=== PATIENT | male | born 1935 | race Caucasian/White ===

== ENCOUNTER 2017-01-23 10:38 | Outpatient (RCR) | payer MEDICARE, BC ==
[~2017-01-23] VITALS: Ht 152.4 cm; Wt 55.3 kg
[2017-01-25] MEDS ORDERED: Lidocaine 1% MPF 10mg/ml 5ml INJ ONE (16:00)
[2017-01-25] MEDS ORDERED: Lidocaine HCl 2% Jelly 5ml Tube TOPIC ONE (16:00)
== END 2017-02-10 | disposition home or self-care (01) ==
LOC: WCC 10:38
DX: L97.822 Non-pressure chronic ulcer of other part of left lower leg with fat layer exposed (principal); L59.9 Disorder of the skin and subcutaneous tissue related to radiation, unspecified; C44.729 Squamous cell carcinoma of skin of left lower limb, including hip; I87.2 Venous insufficiency (chronic) (peripheral)
CPT/HCPCS: 11042; 11100; G0277

== ENCOUNTER 2017-01-30 12:06 | Outpatient (CLI) | payer MEDICARE, BC ==
--- NOTE | 2017-01-30 15:07 | Diagnostic Imaging Report ---
Indications: COUGH Technique: AP and lateral chest Findings: Comparison: 01/20/2014 Linear density has developed in the left lung base. Right lung remains clear. Heart size, pulmonary vasculature remain within normal limits. No pleural abnormality demonstrated. Diffuse osteopenia, bilateral humeral head chronic deformities (progressive on left), cervicothoracic fusion hardware, scoliosis, aortic arch calcification, hiatal hernia, IVC filter, abdominal right upper quadrant surgical clips are again noted. IMPRESSION: Development of subsegmental atelectasis versus scarring Otherwise no evidence of acute cardiopulmonary disease, unchanged Progression of chronic erosive/destructive deformity left humeral head-favor chronic inflammatory/neuropathic arthropathy Other stable chronic changes as described
== END 2017-01-30 14:06 | disposition home or self-care (01) ==
LOC: RAD 12:06
DX: R05 Cough (principal); G62.9 Polyneuropathy, unspecified
CPT/HCPCS: 71020

== ENCOUNTER 2017-02-11 17:10 | Outpatient (RCR) | payer MEDICARE, BC ==
[~2017-02-11] VITALS: Ht 152.4 cm; Wt 55.3 kg
[2017-02-22] MEDS ORDERED: Lidocaine HCl 2% Jelly 5ml Tube TOPIC ONE (11:00)
== END 2017-03-13 | disposition home or self-care (01) ==
LOC: WCC 17:10
DX: L97.822 Non-pressure chronic ulcer of other part of left lower leg with fat layer exposed (principal); L59.9 Disorder of the skin and subcutaneous tissue related to radiation, unspecified; C44.729 Squamous cell carcinoma of skin of left lower limb, including hip; I87.2 Venous insufficiency (chronic) (peripheral); M19.90 Unspecified osteoarthritis, unspecified site
CPT/HCPCS: 11042; 15271; 29580; G0277; G0463; Q4133

== ENCOUNTER 2017-03-14 08:00 | Outpatient (RCR) | payer MEDICARE, BC | END 2017-04-13 | disposition home or self-care (01) | LOC: WCC 08:00 | DX: L97.822 Non-pressure chronic ulcer of other part of left lower leg with fat layer exposed (principal); C44.729 Squamous cell carcinoma of skin of left lower limb, including hip; L59.9 Disorder of the skin and subcutaneous tissue related to radiation, unspecified; M19.90 Unspecified osteoarthritis, unspecified site | CPT/HCPCS: 11042; 15271; 29580; G0277; Q4133 ==

== ENCOUNTER 2017-04-14 08:30 | Outpatient (RCR) | payer MEDICARE, BC ==
[2017-05-12] MEDS ORDERED: ATORVASTATIN CA40 MG ORAL (13:48)
[2017-05-12] MEDS ORDERED: VITAMIN B122500 MCG PO (13:48)
[2017-05-12] MEDS ORDERED: POTASSIUM CHLO20 ME3 PO (13:48)
[2017-05-12] MEDS ORDERED: PRAMIPEXOLE D0.25 MG ORAL (13:48)
[2017-05-12] MEDS ORDERED: FUROSEMIDE40 MG ORAL (13:48)
[2017-05-12] MEDS ORDERED: GABAPENTIN300 MG ORAL (13:48)
[2017-05-12] MEDS ORDERED: METHADONE HCL5 MG PO (13:48)
== END 2017-05-13 | disposition home or self-care (01) ==
LOC: WCC 08:30
DX: L97.822 Non-pressure chronic ulcer of other part of left lower leg with fat layer exposed (principal); C44.729 Squamous cell carcinoma of skin of left lower limb, including hip; L97.811 Non-pressure chronic ulcer of other part of right lower leg limited to breakdown of skin; L97.512 Non-pressure chronic ulcer of other part of right foot with fat layer exposed; C44.712 Basal cell carcinoma of skin of right lower limb, including hip; M19.90 Unspecified osteoarthritis, unspecified site; L59.8 Other specified disorders of the skin and subcutaneous tissue related to radiation
CPT/HCPCS: 11100; 15271; 29580; 82962; G0277; Q4133

== ENCOUNTER 2017-05-15 10:55 | Day surgery (SDC) | payer MEDICARE, BC ==
[2017-05-08 10:58] LABS: BASOPHILS % (AUTO) 0.4 % (0.0-2.0); MEAN CORPUSCULAR HEMOGLOBIN 30.1 PG (27.0-31.0); MEAN CORPUSCULAR VOLUME 94 FL (80-99); MEAN PLATELET VOLUME 5.8 FL (6.5-10.1); MONOCYTES % (AUTO) 6.6 % (1.0-10.0); NEUTROPHILS % (AUTO) 69.1 % (45.0-75.0); PLATELET COUNT 219 K/UL (150-450); RED BLOOD COUNT 4.16 M/UL (4.70-6.10); RED CELL DISTRIBUTION WIDTH 12.6 % (11.6-14.8); WHITE BLOOD COUNT 8.1 K/UL (4.8-10.8)
[2017-05-08 11:12] LABS: INR 1.1 (0.9-1.1); PROTHROMBIN TIME 11.3 SEC (9.30-11.50)
[2017-05-08 11:14] LABS: ANION GAP 10 (5-15); CALCIUM 8.7 mg/dL (8.6-10.2); CARBON DIOXIDE 32 mEQ/L (20-30); CHLORIDE 94 mEQ/L (98-107); HEMOLYSIS 1; POTASSIUM 3.9 mEQ/L (3.4-4.9); SODIUM 136 mEQ/L (135-145)
[2017-05-15] VITALS (8 sets, daily range): BP systolic 96–141; BP diastolic 49–75
[~2017-05-15] VITALS: Ht 152.4 cm; Wt 53.1 kg
[~2017-05-15 10:55] MED LIST: ATORVASTATIN CA40 MG ORAL; FUROSEMIDE40 MG ORAL; GABAPENTIN300 MG ORAL; METHADONE HCL5 MG PO; POTASSIUM CHLO20 ME3 PO; PRAMIPEXOLE D0.25 MG ORAL; VITAMIN B122500 MCG PO
--- NOTE | 2017-05-15 12:14 | Pre-Procedure Note/Attestation ---
Pre-Procedure Note/Attestation Complete Prior to Procedure Planned Procedure: bilateral Procedure Narrative: resection right foot basal cell cancer, possible skin graft. Debridement of left lower leg ulcer. Indications for Procedure Pre-Operative Diagnosis: Basal cell cancer right foot. 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 Attestation I attest that I discussed the nature of the procedure; its benefits; risks and complications; and alternatives (and the risks and benefits of such alternatives ), prior to the procedure, with the patient (or the patient's legal airport representative). I attest that, if there was a reasonable possibility of needing a blood transfusion, the patient (or the patient's legal airport representative) was given the [facility] standardized written summary, pursuant to the Kyle Keena Blood Safety Act ([place] Health and Safety Code # 1645, as amended). I attest that I re-evaluated the patient just prior to the surgery and that there has been no change in the patient's H&P, except as documented below: WINSTON CHOW May 15, 2017 12:14
[2017-05-15] MEDS ORDERED: ceFAZolin 2gm/50ml Premix 50 ML IVPB ONE (12:15)
[2017-05-15] MEDS ORDERED: fentaNYL 100 mcg/2 mL IV ONE (14:00)
[2017-05-15] MEDS ORDERED: Propofol 1,000mg/ 100ml btl IV ONE (14:00)
[2017-05-15] MEDS ORDERED: Midazolam 2mg/2ml Inj ONE (14:00)
[2017-05-15] MEDS ORDERED: NS Irrig 1000ml IRRIG ONE (14:00)
[2017-05-15] MEDS ORDERED: NS Irrig 1000ml ONE (14:00)
[2017-05-15] MEDS ORDERED: Sterile Water Irrig 1000ml IRRIG ONE (14:00)
[2017-05-15] MEDS ORDERED: Atropine Sulfate 0.4mg/ml inj ONE (14:00)
[2017-05-15] MEDS ORDERED: Lidocaine 1% 10mg/ml/Epi 0.005mg/ml 30ml vial INJ ONE (14:00)
[2017-05-15] MEDS ORDERED: LR 1000ml ONE (14:00)
[2017-05-15] MEDS ORDERED: ePHEDrine 50mg/ml Inj ONE (14:00)
[2017-05-15] MEDS ORDERED: Neosporin Oint Ud Pkt TOPIC ONE (14:57)
[2017-05-15] MEDS ORDERED: Meperidine 25mg/0.5ml Inj (FOR RIGORS ONLY) ONE (15:48)
--- NOTE | 2017-05-15 15:51 | Brief Operative Note ---
Immediate Post Operative Note Operative Note Pre-op Diagnosis: Basal cell cancer right foot. 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 Procedure: Excisional debridement of left lower leg ulcer to subcutaneous tissue. Resection of right foot basal cell cancer with frozen section x 2. Post-op Diagnosis: same as pre-op Findings: other - Margins clear on frozen sections Surgeon: Rayo Anesthesiologist: Purvi Anesthesia: local, MAC Specimen: yes Complications: none Condition: stable Fluids: IVF Estimated Blood Loss: none Drains: none Implant(s) used?: No WINSTON CHOW May 15, 2017 15:51
[2017-05-15] MEDS ORDERED: Meperidine 25mg/0.5ml Inj (FOR RIGORS ONLY) IV PRN (16:00)
--- NOTE | 2017-05-15 19:18 | Cardiology Report ---
APPROVED REPORT EKG Measurement Heart [id number] Sinus bradycardia with premature atrial complexes with aberrant conduction Voltage criteria for left ventricular hypertrophy Possible Lateral infarct, age undetermined Abnormal ECG
--- NOTE | 2017-05-15 23:00 | Operative Note - Dictated ---
DATE OF OPERATION: 05/15/2017 SURGEON: Lawrence Cade M.D. ANESTHESIOLOGIST: Kyle Heredia M.D. PREOPERATIVE DIAGNOSES: 1. Right foot basal cell carcinoma. 2. Left lower extremity chronic nonhealing wound. POSTOPERATIVE DIAGNOSES: 1. Right foot basal cell carcinoma. 2. Left lower extremity chronic nonhealing wound. OPERATION: 1. Excisional debridement down to subcutaneous tissue of the left lower extremity nonhealing wound. 2. Resection of right foot basal cell carcinoma, frozen section x2. Anesthesia: General anesthesia with 30 mL of 1% lidocaine with 1:100,000 epinephrine local anesthetic. Operative Indications: This is an 81-year-old male who had a lesion on his right foot as well as a chronic nonhealing wound on his left lower extremity. He had an incisional biopsy of the right foot lesion several weeks ago, which was positive for basal cell carcinoma. Decision was made to take him to the operating room for resection of this lesion as well as debridement of his left lower extremity wound. Once, he was medically cleared, he was scheduled for the surgery. Operative Procedure: The patient was seen in the preoperative area. The operative plan was again discussed and agreed upon. An IV was placed and informed consent was signed. He was then taken back to the operating room. The patient was placed on the operating table in the supine position and once the anesthesia was induced, his right lower extremity and left lower extremity were prepped and draped in the usual sterile fashion. A time-out was then performed and then began on the left side, a #15 blade was used to perform excisional debridement down to subcutaneous tissue. Hemostasis was obtained with pressure and then a dressing was applied, which consisted of Adaptic gauze and a Kerlix. The right foot lesion was injected with 20 mL of 1% lidocaine with 1:100,000 epinephrine. Then, after waiting for appropriate amount of time, an incision was made around the lesion taking a several millimeter margin. This was taken down to the level of the subcutaneous tissue in some areas and down to tendon and other areas. The specimen was taken off the field after being labeled at 12 o'clock position with a nylon suture. This will be sent for permanent section. At this point, an elliptical rim of skin was taken for frozen section as well as a layer of deep tissue for deep margins. This was sent to pathology for frozen section and after being analyzed, this came back negative for any residual carcinoma. At this point, hemostasis was carefully obtained and the wound, which measured 3.6 x 3.4 x 0.5 cm was dressed with ointment followed by Adaptic gauze and a Kerlix and an Juno wrap. The patient was then awoken and taken to the recovery room in stable condition. No complications. EBL was minimal. The patient tolerated the procedure well. Lawrence Cade M.D. DR: CHLOE JOB#: [id number] CC:
== END 2017-05-15 17:00 | disposition home or self-care (01) ==
LOC: SUR 10:55
DX: C44.712 Basal cell carcinoma of skin of right lower limb, including hip (principal); L97.929 Non-pressure chronic ulcer of unspecified part of left lower leg with unspecified severity; I51.7 Cardiomegaly; R01.1 Cardiac murmur, unspecified; M06.9 Rheumatoid arthritis, unspecified; G62.9 Polyneuropathy, unspecified; K21.9 Gastro-esophageal reflux disease without esophagitis; M41.9 Scoliosis, unspecified; Z90.49 Acquired absence of other specified parts of digestive tract; Z96.651 Presence of right artificial knee joint; Z87.891 Personal history of nicotine dependence; Z80.8 Family history of malignant neoplasm of other organs or systems; Z81.8 Family history of other mental and behavioral disorders; Z79.82 Long term (current) use of aspirin; L85.9 Epidermal thickening, unspecified
CPT/HCPCS: 11042; 11624; 36415; 80048; 85025; 85610; 85730; 93005; J0461; J2250; J2704; J3010; J7120; 94003; 94150; J2180

== ENCOUNTER 2017-05-22 08:45 | Outpatient (RCR) | payer MEDICARE, BC ==
--- NOTE | 2017-05-15 14:40 | Anethesia Preoperative Eval ---
Anesthesia Pre-op PMH/ROS General Date of Evaluation: May 15, 2017 Time of Evaluation: 13:45 Anesthesiologist: Giovanna ASA Score: ASA 3 Mallampati Score Class I : Soft palate, uvula, fauces, pillars visible Class II: Soft palate, uvula, fauces visible Class III: Soft palate, base of uvula visible Class IV: Only hard plate visible Mallampati Classification: Class II Surgeon: Rayo Diagnosis: Basal Cell CA right foot Surgical Procedure: Excision of basal cell CA Family History: no anesthesia problems Allergies: Coded Allergies: NO KNOWN DRUG ALLERGIES (Verified Allergy, Unknown, 01/25/17) Medications: see eMAR Past Medical History Cardiovascular: Denies: HTN, CAD, TN, valve dz, arrhythmia, other Pulmonary: Denies: asthma, COPD, [place], other Gastrointestinal/Genitourinary: Reports: GERD, Denies: CRI, ESRD, other Endocrine: Denies: DM, hypothyroidism, steroids, other HEENT: Denies: cataract (L), cataract (R), glaucoma, [place] (L), [place] (R), other Hematology/Immune: Denies: anemia, DVT, bleeding disorder, other Musculoskeletal/Integumentary: Reports: RA, DJD PMH Narrative: RA, GERD, DJD, chronic pain, restless leg PSxH Narrative: Lumbar fusion, cholecystectomy, TKR Anesthesia Pre-op Phys. Exam Physician Exam Constitutional: NAD Neurologic: CN 2-12 intact Cardiovascular: RRR, no M/R/G Respiratory: CTA Gastrointestinal: S/NT/ND Airway Exam Mallampati Score: Class II MO: full ROM: full Teeth: missing Anesthesia Pre-op A/P Studies Pre-op Studies: EKG - SR, possible lateral TN via poor R wave progression Risk Assessment & Plan Assessment: Excision of basal cell in this RA patient Plan: MAC, TIVA Status Change Before Surgery: No Pre-Antibiotics Drug: Ancef Given Within 1 Hr of Incision: Yes Time Given: 14:10 CARLA MONTES M.D. May 15, 2017 14:40
--- NOTE | 2017-05-15 14:42 | Immediate Post-Op Evaluation ---
Immediate Post-Op Evalulation Immediate Post-Op Evalulation Procedure: Excision of basal cell CA right foot Date of Evaluation: May 15, 2017 Time of Evaluation: 15:45 IV Fluids: 1050 Blood Pressure Systolic: 94 Blood Pressure Diastolic: 50 Pulse Rate: 60 Respiratory Rate: 10 O2 Sat by Pulse Oximetry: 100 Temperature (Fahrenheit): 98.0 Pain Score (1-10): 0 Nausea: No Vomiting: No Complications No complication Patient Status: awake, patent, none Hydration Status: adequate Drug: Ancef Given Within 1 Hr of Incision: Yes Time Given: 14:10 CARLA MONTES M.D. May 15, 2017 14:42
[2017-05-15 15:39] VITALS: BP 100/55
--- NOTE | 2017-05-15 15:39 | 48 Hour Post Anesthesia Eval ---
Post Anesthesia Evaluation Procedure: Excision of basal cell CA right foot Date of Evaluation: May 15, 2017 Time of Evaluation: 16:00 Blood Pressure Systolic: 100 0: 55 Pulse Rate: 56 Respiratory Rate: 12 O2 Sat by Pulse Oximetry: 100 Airway: patent Nausea: No Vomiting: No Pain Intensity: 0 Hydration Status: adequate Cardiopulmonary Status: Stable Mental Status/LOC: patient returned to baseline Follow-up Care/Observations: As per surgery Post-Anesthesia Complications: No anesthetic complication Follow-up care needed: N/A CARLA MONTES M.D. May 15, 2017 15:39
[~2017-05-22] VITALS: Ht 30.5 cm; Wt 0.5 kg
[~2017-05-22 08:45] MED LIST changes: +Bacitracin 50000 Units Vial ONE; +DiphenhydrAMINE 50mg/ml Inj IVP PRN; +Hydromorphone 0.5mg/0.5ml inj IVP PRN; +LR 1000ml 1,000 ML IV SCH; +LR 1000ml 1,000 ML IVLG SCH; +Lidocaine 1% 10mg/ml/Epi 0.005mg/ml 30ml vial INJ ONE; +Meperidine 25mg/0.5ml Inj (FOR RIGORS ONLY) IV PRN; +Muri-Lube ONE
== END 2017-06-13 | disposition home or self-care (01) ==
LOC: WCC 08:45
DX: L59.8 Other specified disorders of the skin and subcutaneous tissue related to radiation (principal); L97.822 Non-pressure chronic ulcer of other part of left lower leg with fat layer exposed; C44.729 Squamous cell carcinoma of skin of left lower limb, including hip; L97.811 Non-pressure chronic ulcer of other part of right lower leg limited to breakdown of skin; L97.512 Non-pressure chronic ulcer of other part of right foot with fat layer exposed; M19.90 Unspecified osteoarthritis, unspecified site
CPT/HCPCS: 11042; 11043; 15271; 15275; 29580; 97605; Q4133

== ENCOUNTER 2017-05-26 01:53 | Emergency (ER) | payer MEDICARE, BC ==
[~2017-05-26] VITALS: Ht 162.6 cm; Wt 53.1 kg
[~2017-05-26 01:53] MED LIST changes: -Bacitracin 50000 Units Vial ONE; -DiphenhydrAMINE 50mg/ml Inj IVP PRN; -Hydromorphone 0.5mg/0.5ml inj IVP PRN; -LR 1000ml 1,000 ML IV SCH; -LR 1000ml 1,000 ML IVLG SCH; -Lidocaine 1% 10mg/ml/Epi 0.005mg/ml 30ml vial INJ ONE; -Meperidine 25mg/0.5ml Inj (FOR RIGORS ONLY) IV PRN; -Muri-Lube ONE
[2017-05-26 02:00] VITALS: BP 148/82
[2017-05-26 03:29] VITALS: BP 111/52
[2017-05-26 03:45] VITALS: BP 111/52
--- NOTE | 2017-05-28 07:22 | Emergency Room Report ---
History of Present Illness General Chief Complaint: General Complaint Source: Patient Present Illness HPI Patient presents with complaints of his wound vacuum is not functioning appropriately He noticed this for the past 2 hours He had called the company And they told him to present to the ER Denies any headache or visual changes denies any fevers or chills Patient is on therapy outpatient for chronic open wounds of the lower leg Denies any change in medications Allergies: Coded Allergies: NO KNOWN DRUG ALLERGIES (Verified Allergy, Unknown, 01/25/17) Patient History Past Medical History: see triage record Pertinent Family History: none Reviewed Nursing Documentation: PMH: Agreed, PSxH: Agreed Nursing Documentation-PMH Hx Cardiac Problems: No Hx Cancer: Yes - RIGHT FOOT,LEFT LEG Hx Gastrointestinal Problems: Yes Hx Neurological Problems: No Hx Neurologic Surgery: Yes - CERVICAL FUSION-2001, LUMBAR SURGERY-2001 Review of Systems All Other Systems: negative except mentioned in HPI Physical Exam Vital Signs Date Time Temp Pulse Resp B/P (MAP) Pulse Ox O2 Delivery O2 Flow Rate FiO2 05/26/17 01:58 97.9 70 18 148/82 98 Room Air Sp02 EP Interpretation: reviewed, normal General Appearance: well appearing, no apparent distress Head: normocephalic, atraumatic Eyes: bilateral eye PERRL, bilateral eye EOMI ENT: normal pharynx Neck: full range of motion, supple Respiratory: lungs clear Cardiovascular #1: regular rate, rhythm Gastrointestinal: non tender, soft Musculoskeletal: other - no focal deficit Neurologic: alert, oriented x3 Skin: other - Patient has dressing on the right lower extremity, wound packing is in place and this was no further removed for interrogation Lymphatic: no adenopathy Medical Decision Making Diagnostic Impression: Primary Impression: wound vacuum malfunction ER Course The patient's machine is making a sound, which reveals likely leak from some aspect of the apparatus After applying pressure to be 2 size of the machine were able to make a better seal, patient reports that there might have been some trauma to that apparatus in that area With pressure and applying a dressing around the machine we are able to fix the machine and have appropriate suctioning Patient also feels that suctioning working At this time stable for outpatient followup Last Vital Signs Date Time Temp Pulse Resp B/P (MAP) Pulse Ox O2 Delivery O2 Flow Rate FiO2 05/26/17 03:45 97.9 56 14 111/52 99 Room Air Status: improved Disposition: HOME, SELF-CARE Condition: Improved Referrals: NON PHYSICIAN (PCP) Patient Instructions: Vacuum-Assisted Closure Therapy Home Guide Additional Instructions: Patient is provided with the discharge instructions notified to follow up with primary doctor in the next 2-3 days otherwise return to the er with any worsening symptoms. Please note that this report is being documented using DRAGON technology. This can lead to erroneous entry secondary to incorrect interpretation by the dictating instrument. TALHA VILLARREAL D.O. May 28, 2017 07:22
== END 2017-05-26 03:54 | disposition home or self-care (01) ==
LOC: EMR 02:29
DX: T85.698A Other mechanical complication of other specified internal prosthetic devices, implants and grafts, initial encounter (principal); Y83.8 Other surgical procedures as the cause of abnormal reaction of the patient, or of later complication, without mention of misadventure at the time of the procedure; Y92.89 Other specified places as the place of occurrence of the external cause; Z85.89 Personal history of malignant neoplasm of other organs and systems; Z98.1 Arthrodesis status
CPT/HCPCS: 99282

== ENCOUNTER 2017-05-28 00:44 | Emergency (ER) | payer MEDICARE, BC ==
[~2017-05-28] VITALS: Ht 152.4 cm; Wt 51.7 kg
[2017-05-28 01:00] VITALS: BP 132/85
--- NOTE | 2017-05-28 01:22 | Emergency Room Report ---
History of Present Illness General Chief Complaint: General Complaint Source: Patient Present Illness HPI Is a pleasant 81-year-old male with a history of cancer. He has a wound VAC to his right leg. It was not working so he came here. He was afraid that the infection and drainage to go back into his foot. Denies any trauma. No fever or chills. Allergies: Coded Allergies: NO KNOWN DRUG ALLERGIES (Verified Allergy, Unknown, 01/25/17) Patient History Past Medical History: see triage record, old chart reviewed Past Surgical History: other Pertinent Family History: none Social History: Denies: smoking Immunizations: other Reviewed Nursing Documentation: PMH: Agreed, PSxH: Agreed Nursing Documentation-PMH Hx Cardiac Problems: No Hx Cancer: Yes - RIGHT FOOT,LEFT LEG Hx Gastrointestinal Problems: Yes Hx Neurological Problems: No Hx Neurologic Surgery: Yes - CERVICAL FUSION-2001, LUMBAR SURGERY-2001 Review of Systems Eye: Denies: eye pain, blurred vision ENT: Denies: ear pain, nose congestion, throat swelling Respiratory: Denies: cough, shortness of breath Cardiovascular: Denies: chest pain, palpitations Gastrointestinal: Denies: abdominal pain, diarrhea, nausea, vomiting Musculoskeletal: Denies: back pain, joint pain Skin: Denies: rash Neurological: Denies: headache, numbness Endocrine: Denies: increased thirst, increased urine Hematologic/Lymphatic: Denies: easy bruising All Other Systems: negative except mentioned in HPI Physical Exam Vital Signs Date Time Temp Pulse Resp B/P (MAP) Pulse Ox O2 Delivery O2 Flow Rate FiO2 05/28/17 00:50 98.1 60 18 137/87 98 Room Air vitals normal Sp02 EP Interpretation: reviewed, normal General Appearance: well appearing, no apparent distress, alert Head: normocephalic, atraumatic Eyes: bilateral eye PERRL, bilateral eye EOMI ENT: hearing grossly normal, normal pharynx Neck: full range of motion, supple, no meningismus Respiratory: chest non-tender, lungs clear, normal breath sounds Cardiovascular #1: regular rate, rhythm, no murmur Gastrointestinal: normal bowel sounds, non tender, no mass, no organomegaly, no bruit, non-distended Musculoskeletal: back normal, normal range of motion, other - Bilateral lymphedema. Wound VAC to the right lower leg. Psychiatric: mood/affect normal Skin: warm/dry Medical Decision Making Diagnostic Impression: Primary Impression: Encounter for management of vacuum-assisted closure (VAC) of wound ER Course Patient with malfunction of his wound VAC. I disconnected everything reconnected it. Is working now. We'll discharge him. Last Vital Signs Date Time Temp Pulse Resp B/P (MAP) Pulse Ox O2 Delivery O2 Flow Rate FiO2 05/28/17 00:50 98.1 60 18 137/87 98 Room Air Status: improved Disposition: HOME, SELF-CARE Condition: Stable Referrals: NOT CHOSEN IPA/,REFERRING (PCP) Additional Instructions: Followup your doctor on Monday and or as needed. Return if worse. JAMES FOSTER M.D. May 28, 2017 01:22
[2017-05-28 01:27] VITALS: BP 132/85
== END 2017-05-28 01:25 | disposition home or self-care (01) ==
LOC: EMR 00:58
DX: Z48.01 Encounter for change or removal of surgical wound dressing (principal); I89.0 Lymphedema, not elsewhere classified; Z98.1 Arthrodesis status; Z85.89 Personal history of malignant neoplasm of other organs and systems
CPT/HCPCS: 99282

== ENCOUNTER 2017-06-19 08:45 | Outpatient (RCR) | payer MEDICARE, BC ==
[2017-05-15 15:39] VITALS: BP 100/55
== END 2017-07-13 | disposition home or self-care (01) ==
LOC: WCC 08:45
DX: L97.822 Non-pressure chronic ulcer of other part of left lower leg with fat layer exposed (principal); L59.8 Other specified disorders of the skin and subcutaneous tissue related to radiation; C44.729 Squamous cell carcinoma of skin of left lower limb, including hip; L97.811 Non-pressure chronic ulcer of other part of right lower leg limited to breakdown of skin; L97.512 Non-pressure chronic ulcer of other part of right foot with fat layer exposed; Z85.828 Personal history of other malignant neoplasm of skin; M19.90 Unspecified osteoarthritis, unspecified site
CPT/HCPCS: 15004; 15275; 29580; Q4133

== ENCOUNTER 2017-07-17 08:45 | Outpatient (RCR) | payer MEDICARE, BC ==
[2017-05-15 15:39] VITALS: BP 100/55
== END 2017-08-13 | disposition home or self-care (01) ==
LOC: WCC 08:45
DX: L97.822 Non-pressure chronic ulcer of other part of left lower leg with fat layer exposed (principal); C44.729 Squamous cell carcinoma of skin of left lower limb, including hip; L59.8 Other specified disorders of the skin and subcutaneous tissue related to radiation; L97.811 Non-pressure chronic ulcer of other part of right lower leg limited to breakdown of skin; L97.512 Non-pressure chronic ulcer of other part of right foot with fat layer exposed
CPT/HCPCS: 11042; 15271; 15275; 29580; Q4133

== ENCOUNTER 2017-08-21 09:02 | Outpatient (RCR) | payer MEDICARE, BC ==
[2017-05-15 15:39] VITALS: BP 100/55
[~2017-08-21] VITALS: Ht 152.4 cm; Wt 55.3 kg
== END 2017-09-13 | disposition home or self-care (01) ==
LOC: WCC 09:02
DX: L97.822 Non-pressure chronic ulcer of other part of left lower leg with fat layer exposed (principal); L59.8 Other specified disorders of the skin and subcutaneous tissue related to radiation; C44.729 Squamous cell carcinoma of skin of left lower limb, including hip; L97.811 Non-pressure chronic ulcer of other part of right lower leg limited to breakdown of skin; L97.512 Non-pressure chronic ulcer of other part of right foot with fat layer exposed; Z85.828 Personal history of other malignant neoplasm of skin; M19.90 Unspecified osteoarthritis, unspecified site
CPT/HCPCS: 15271; 29580; Q4133

== ENCOUNTER 2017-09-18 08:42 | Outpatient (RCR) | payer MEDICARE, BC ==
[2017-05-15 15:39] VITALS: BP 100/55
== END 2017-10-11 | disposition home or self-care (01) ==
LOC: WCC 08:42
DX: L59.8 Other specified disorders of the skin and subcutaneous tissue related to radiation (principal); L97.822 Non-pressure chronic ulcer of other part of left lower leg with fat layer exposed; C44.729 Squamous cell carcinoma of skin of left lower limb, including hip; L97.811 Non-pressure chronic ulcer of other part of right lower leg limited to breakdown of skin; L97.512 Non-pressure chronic ulcer of other part of right foot with fat layer exposed; M19.90 Unspecified osteoarthritis, unspecified site
CPT/HCPCS: 15271; 29580; Q4131; Q4133

== ENCOUNTER 2017-10-16 08:52 | Outpatient (RCR) | payer MEDICARE, BC ==
[2017-05-15 15:39] VITALS: BP 100/55
[~2017-10-16] VITALS: Ht 152.4 cm; Wt 55.3 kg
== END 2017-11-11 | disposition home or self-care (01) ==
LOC: WCC 08:52
DX: L97.822 Non-pressure chronic ulcer of other part of left lower leg with fat layer exposed (principal); L59.8 Other specified disorders of the skin and subcutaneous tissue related to radiation; C44.729 Squamous cell carcinoma of skin of left lower limb, including hip; L97.811 Non-pressure chronic ulcer of other part of right lower leg limited to breakdown of skin; L97.512 Non-pressure chronic ulcer of other part of right foot with fat layer exposed; Z85.828 Personal history of other malignant neoplasm of skin
CPT/HCPCS: 11042; 15271; 29580; Q4131

== ENCOUNTER 2017-11-13 08:16 | Outpatient (RCR) | payer MEDICARE, BC ==
[2017-05-15 15:39] VITALS: BP 100/55
[~2017-11-13] VITALS: Ht 152.4 cm; Wt 55.3 kg
[2017-12-08] MEDS ORDERED: Lidocaine HCl 2% Jelly 5ml Tube TOPIC ONE (13:00)
[2017-12-08] MEDS ORDERED: Lidocaine 1% MPF 10mg/ml 5ml INJ ONE (13:00)
== END 2017-12-11 | disposition home or self-care (01) ==
LOC: WCC 08:16
DX: L97.822 Non-pressure chronic ulcer of other part of left lower leg with fat layer exposed (principal); C44.729 Squamous cell carcinoma of skin of left lower limb, including hip; L97.811 Non-pressure chronic ulcer of other part of right lower leg limited to breakdown of skin; L97.512 Non-pressure chronic ulcer of other part of right foot with fat layer exposed; L59.8 Other specified disorders of the skin and subcutaneous tissue related to radiation; C44.602 Unspecified malignant neoplasm of skin of right upper limb, including shoulder
CPT/HCPCS: 11042; 11100; 15271; 29580; Q4133

== ENCOUNTER 2017-12-18 10:24 | Outpatient (RCR) | payer MEDICARE, BC ==
[2017-05-15 15:39] VITALS: BP 100/55
== END 2018-01-11 | disposition home or self-care (01) ==
LOC: WCC 10:24
DX: L59.8 Other specified disorders of the skin and subcutaneous tissue related to radiation (principal); L97.822 Non-pressure chronic ulcer of other part of left lower leg with fat layer exposed; C44.729 Squamous cell carcinoma of skin of left lower limb, including hip; L97.811 Non-pressure chronic ulcer of other part of right lower leg limited to breakdown of skin; L97.512 Non-pressure chronic ulcer of other part of right foot with fat layer exposed; C44.602 Unspecified malignant neoplasm of skin of right upper limb, including shoulder; M19.90 Unspecified osteoarthritis, unspecified site
CPT/HCPCS: 11042; 15271; 29580; Q4133

== ENCOUNTER → 2017-12-18 | Outpatient (CLI) | payer MEDICARE, BC ==
[2017-12-18 12:34] LABS: BASOPHILS % (AUTO) 0.3 % (0.0-2.0); EOSINOPHILS % (AUTO) 1.8 % (0.0-3.0); HEMATOCRIT 38.9 % (42.0-52.0); HEMOGLOBIN 12.9 G/DL (14.2-18.0); MEAN CORPUSCULAR VOLUME 91 FL (80-99); MONOCYTES % (AUTO) 5.2 % (1.0-10.0); NEUTROPHILS % (AUTO) 80.8 % (45.0-75.0); PLATELET COUNT 193 K/UL (150-450); RED BLOOD COUNT 4.26 M/UL (4.70-6.10); RED CELL DISTRIBUTION WIDTH 12.9 % (11.6-14.8); WHITE BLOOD COUNT 9.4 K/UL (4.8-10.8)
[2017-12-18 13:02] LABS: ALANINE AMINOTRANSFERASE 35 U/L (12-78); ALBUMIN 3.1 G/DL (3.4-5.0); ALBUMIN/GLOBULIN RATIO 0.7 (1.0-2.7); ALKALINE PHOSPHATASE 191 U/L (46-116); ANION GAP 5 mmol/L (5-15); ASPARTATE AMINO TRANSFERASE 34 U/L (15-37); BILIRUBIN,TOTAL 0.9 MG/DL (0.2-1.0); BLOOD UREA NITROGEN 15 mg/dL (7-18); CALCIUM 8.7 MG/DL (8.5-10.1); CARBON DIOXIDE 31 MMOL/L (21-32); CHLORIDE 101 MMOL/L (98-107); POTASSIUM 3.7 MMOL/L (3.5-5.1); SODIUM 137 MMOL/L (136-145)
== END | disposition home or self-care (01) ==
LOC: LAB 11:52
DX: B99.9 Unspecified infectious disease (principal)
CPT/HCPCS: 36415; 80053; 85025

== ENCOUNTER 2017-12-25 10:00 | Day surgery (SDC) | payer MEDICARE, BC ==
[~2017-12-25] VITALS: Ht 152.4 cm; Wt 52.2 kg
[~2017-12-25 10:00] MED LIST changes: +ceFAZolin sod 2 GM in NS 55 ML IVPB ONE
[2017-12-25 10:58] VITALS: BP 109/70
--- NOTE | 2017-12-25 10:59 | Pre-Procedure Note/Attestation ---
Pre-Procedure Note/Attestation Complete Prior to Procedure Planned Procedure: right Procedure Narrative: Excision of right arm squamous cell cancer with intermediate layer closure. Indications for Procedure Pre-Operative Diagnosis: Right upper extremity squamous cell cancer Attestation I attest that I discussed the nature of the procedure; its benefits; risks and complications; and alternatives (and the risks and benefits of such alternatives ), prior to the procedure, with the patient (or the patient's legal patient intake representative). I attest that, if there was a reasonable possibility of needing a blood transfusion, the patient (or the patient's legal patient intake representative) was given the [facility] standardized written summary, pursuant to the Kyle Keena Blood Safety Act ([place] Health and Safety Code # 1645, as amended). I attest that I re-evaluated the patient just prior to the surgery and that there has been no change in the patient's H&P, except as documented below: Lawrence Cade MD December 25, 2017 10:59
[2017-12-25] MEDS ORDERED: Lidocaine 1% 10mg/ml/Epi 0.005mg/ml 30ml vial INJ ONE (11:33)
[2017-12-25 13:05] VITALS: BP 126/63
--- NOTE | 2017-12-26 13:49 | Brief Operative Note ---
Immediate Post Operative Note Operative Note Pre-op Diagnosis: Right upper extremity squamous cell cancer Procedure: Resction of right forearm squamous cell ca with intermediate layer closure. Post-op Diagnosis: same as pre-op Surgeon: Rayo Anesthesia: local Specimen: yes Complications: none Condition: stable Fluids: IVF Estimated Blood Loss: none Drains: none Implant(s) used?: No Lawrence Cade MD December 26, 2017 13:49
--- NOTE | 2017-12-26 17:30 | Operative Note - Dictated ---
DATE OF OPERATION: 12/25/2017 SURGEON: Lawrence Cade M.D. PREOPERATIVE DIAGNOSIS: Right distal forearm squamous cell carcinoma. POSTOPERATIVE DIAGNOSIS: Right distal forearm squamous cell carcinoma. OPERATION: Resection of right forearm squamous cell carcinoma with intermediate layered closure. ANESTHESIA: Local anesthetic of 1% lidocaine with 1:200,000 epinephrine. OPERATIVE INDICATIONS: This is an 82-year-old male who had a biopsy-proven squamous cell carcinoma of his right upper extremity. He has had a prior history of squamous cell carcinomas in the past in multiple areas. An operative plan was devised and agreed upon and once he was medically cleared he was scheduled for elective surgery. OPERATIVE PROCEDURE: The patient was seen in the preoperative area. The operative plan was again discussed and agreed upon. He was brought to the operating room, placed on the operating table in supine position and once he was positioned and all pressure points were padded, a time-out was performed. His right upper extremity was prepped and draped in usual sterile fashion. A 6 mL of 1% lidocaine with 1:200,000 epinephrine was injected along the surgical site and incision lines. After waiting appropriate amount of time, a #15 blade was used to incise along the markings and the dissection was then proceeded down to the subcutaneous tissue. Dissection proceeded at the level between the subcutaneous tissue and the fascia and the specimen was removed and marked at 12 o'clock with a 3-0 silk suture and sent for permanent study. At this point, hemostasis was carefully obtained. The surgical site was undermined to achieve a tension-free closure. Then a combination of 3-0 Vicryl and 3-0 Monocryl were used to close the deeper layer in the subcutaneous tissues and then a 4-0 Monocryl in the deep dermis, and a 5-0 Prolene in a running fashion for the skin. Total incision length was 4.2 cm. Dressings were then applied. He was then taken to the recovery room in stable condition. There were no complications. EBL was scant. The patient tolerated the procedure well. Lawrence Cade M.D. DR: PATRIZIA JOB#: [id number] CC:
== END 2017-12-25 13:40 | disposition home or self-care (01) ==
LOC: SUR 10:00
DX: C76.41 Malignant neoplasm of right upper limb (principal)
CPT/HCPCS: 11606; 12032; J0690

== ENCOUNTER 2018-01-15 08:59 | Outpatient (RCR) | payer MEDICARE, BC ==
[2017-05-15 15:39] VITALS: BP 100/55
[~2018-01-15 08:59] MED LIST changes: -ceFAZolin sod 2 GM in NS 55 ML IVPB ONE
== END 2018-02-10 | disposition home or self-care (01) ==
LOC: WCC 08:59
DX: L59.8 Other specified disorders of the skin and subcutaneous tissue related to radiation (principal); L97.822 Non-pressure chronic ulcer of other part of left lower leg with fat layer exposed; C44.729 Squamous cell carcinoma of skin of left lower limb, including hip; L97.811 Non-pressure chronic ulcer of other part of right lower leg limited to breakdown of skin; L97.512 Non-pressure chronic ulcer of other part of right foot with fat layer exposed; C44.602 Unspecified malignant neoplasm of skin of right upper limb, including shoulder
CPT/HCPCS: 11042; 15271; 29580; G0463; Q4133